=== PATIENT | male | born 1960 | race Caucasian/White ===

== ENCOUNTER 2017-04-14 13:37 | Emergency (ER) | payer SELFPAY ==
[~2017-04-14] VITALS: Ht 193 cm; Wt 93.9 kg
[2017-04-14 13:48] VITALS: BP 177/125; Ht 193 cm; Wt 93.9 kg
== END 2017-04-14 17:32 | disposition left against medical advice (07) ==
LOC: ED 13:37
DX: Z53.21 Procedure and treatment not carried out due to patient leaving prior to being seen by health care provider (principal)